=== PATIENT | male | born 1935 | race Two or more races ===

== ENCOUNTER 2021-05-27 11:19 | Inpatient (IN) | payer OTHER ==
[~2021-05-27] VITALS: Ht 162.6 cm; Wt 67.0 kg
[2021-05-27] MEDS ORDERED: SODIUM CHLORIDE 0.9% 500 ML IV ONE (11:30)
[2021-05-27 12:10] LABS: Hematocrit 18.3 % (41.0-53.0); Mean Corpuscular Hemoglobin 40.1 pg (28.0-32.0); Mean Corpuscular Hgb Conc. 33.5 g/dL (32.0-36.0); Red Blood Cells 1.52 10^6/uL (4.5-5.90); White Blood Cell 8.9 10^3/uL (4.4-10.8)
[2021-05-27 12:17] LABS: Red Cell Distribution Width 21.7 % (11.8-14.3)
[2021-05-27 12:18] LABS: Hemoglobin 6.1 g/dL (13.5-17.5)
[2021-05-27 12:20] LABS: Band Neutrophils % (manual) 0; Basophils % (manual) 0 (0.0-2.0); Blast Cells 0; Metamyelocytes % 0; Myelocytes % 0; Promyelocytes % 0; Reactive Lymphocytes 0
[2021-05-27 12:23] LABS: Albumin 2.5 g/dL (3.4-5.0); Calcium 7.8 mg/dL (8.5-10.1); Potassium 3.7 mmol/L (3.5-5.1)
[2021-05-27 12:27] LABS: Total Protein 5.3 g/dL (6.4-8.2)
[2021-05-27 12:41] LABS: Eosinophils % (manual) 1 (0-7); Lymphocytes % (manual) 76 (10.0-50.0); Monocytes % (manual) 1 (0-12)
[2021-05-27] MEDS ORDERED: diphenhdrAMINE HCL 50 MG/1 ML VL IV PRN (15:00)
[2021-05-27] MEDS ORDERED: ACETAMINOPHEN 325 MG TAB PO PRN (15:00)
[2021-05-27] MEDS ORDERED: MORPHINE SULFATE INJECTION 2 MG/2 ML SYRG IV PRN ×2 (15:00)
[2021-05-27] MEDS ORDERED: NITROGLYCERIN 0.4 MG SL TAB SL PRN (15:00)
[2021-05-27] MEDS ORDERED: hydrALAZINE HCL 20 MG/ML VL IV PRN (15:00)
[2021-05-27] MEDS ORDERED: ONDANSETRON HCL 4 MG/2 ML VIAL IV PRN (15:00)
[2021-05-27] MEDS: SODIUM CHLORIDE 0.9% 1,000 ML IV SCH (15:07)
[2021-05-27 15:30] VITALS: BP 97/42
[2021-05-27 15:45] VITALS: BP 107/52
[2021-05-27 17:50] VITALS: BP 97/43
[2021-05-27 18:05] LABS: Urine Bacteria NONE SEEN /hpf (None Seen); Urine Blood 1+ /uL (Negative); Urine Budding Yeast MODERATE /hpf (None Seen); Urine Mucus FEW (None Seen); Urine Specific Gravity 1.022 (1.001-1.035); Urine WBC 22 /hpf (0 - 3)
[2021-05-27] MEDS: cefTRIAXone 1GM/50ML D5W 50 ML IV SCH (22:23)
[2021-05-27] MEDS: PANTOPRAZOLE 40 MG/10 ML VIAL INJ IV SCH (22:23)
[2021-05-27 22:42] LABS: Hematocrit 22.4 % (41.0-53.0); Hemoglobin 7.5 g/dL (13.5-17.5)
[2021-05-28] VITALS (8 sets, daily range): BP systolic 98–126; BP diastolic 51–78
[2021-05-28 02:47] LABS: Hemoglobin 7.6 g/dL (13.5-17.5)
[2021-05-28 02:49] LABS: Hematocrit 21.7 % (41.0-53.0)
[2021-05-28] MEDS: SODIUM CHLORIDE 0.9% 1,000 ML IV SCH (06:45)
[2021-05-28 07:43] LABS: INR 1.22 (0.9-1.15)
[2021-05-28 07:47] LABS: Alanine Aminotransferase 25 U/L (16-61); Albumin 2.1 g/dL (3.4-5.0); Anion Gap 5 (5-15); Aspartate Aminotransferase 22 U/L (15-37); BUN/Creatinine Ratio 26.9; Blood Urea Nitrogen 21 mg/dL (7-18); Calcium 7.3 mg/dL (8.5-10.1); Carbon Dioxide 22 mmol/L (21-32); Chloride 114 mmol/L (98-107); GFR African American 122 mL/min; GFR Non-African American 101 mL/min; Glucose 92 mg/dL (74-106); Magnesium 2.4 mg/dL (1.6-2.6); Potassium 3.8 mmol/L (3.5-5.1); Sodium 141 mmol/L (136-145)
[2021-05-28 08:15] LABS: Alkaline Phosphatase 95 U/L (45-117); Bilirubin, Total 0.8 mg/dL (0.2-1.0); Total Protein 4.9 g/dL (6.4-8.2)
[2021-05-28 08:41] LABS: Hematocrit 22.5 % (41.0-53.0); Hemoglobin 7.6 g/dL (13.5-17.5); Mean Corpuscular Hemoglobin 37.9 pg (28.0-32.0); Mean Corpuscular Hgb Conc. 33.9 g/dL (32.0-36.0); Mean Corpuscular Volume 111.8 fL (80.0-100.0); Red Blood Cells 2.01 10^6/uL (4.5-5.90); White Blood Cell 8.9 10^3/uL (4.4-10.8)
[2021-05-28 08:46] LABS: Red Cell Distribution Width 28.3 % (11.8-14.3)
[2021-05-28 08:48] LABS: Basophils % (manual) 0 (0.0-2.0); Blast Cells 0; Metamyelocytes % 0; Myelocytes % 0; Promyelocytes % 0; Reactive Lymphocytes 0
[2021-05-28] MEDS: cefTRIAXone 1GM/50ML D5W 50 ML IV SCH (09:15)
[2021-05-28] MEDS: PANTOPRAZOLE 40 MG/10 ML VIAL INJ IV SCH ×2 (09:50→21:21)
[2021-05-28] MEDS ORDERED: LACTULOSE 20Gm/30ML SOLN PO SCH (10:00)
[2021-05-28 11:10] LABS: Band Neutrophils % (manual) 3; Eosinophils % (manual) 2 (0-7); Lymphocytes % (manual) 49 (10.0-50.0); Monocytes % (manual) 6 (0-12)
[2021-05-28 14:14] LABS: Hematocrit 23.5 % (41.0-53.0); Hemoglobin 7.9 g/dL (13.5-17.5)
[2021-05-28] MEDS ORDERED: BISACODYL 10 MG RECT SUPP PR ONE (17:15)
[2021-05-28] MEDS ORDERED: LACTULOSE 20Gm/30ML SOLN PO PRN (17:15)
[2021-05-28] MEDS: DOCUSATE SOD 100 MG CAP PO SCH (21:21)
[2021-05-28] MEDS: MUPIROCIN 2% OINT 15gm or 22gm EACHNOSTRI SCH (21:21)
[2021-05-29] MEDS: SODIUM CHLORIDE 0.9% 1,000 ML IV SCH ×2 (02:49→18:00)
[2021-05-29 05:00] VITALS: BP 95/45
[2021-05-29 06:17] LABS: Hematocrit 23.1 % (41.0-53.0); Hemoglobin 7.9 g/dL (13.5-17.5); Mean Corpuscular Hgb Conc. 34.3 g/dL (32.0-36.0); Mean Corpuscular Volume 110.8 fL (80.0-100.0); Red Blood Cells 2.08 10^6/uL (4.5-5.90); White Blood Cell 8.3 10^3/uL (4.4-10.8)
[2021-05-29 06:20] LABS: % Iron Saturation 50.2 % (20-55)
[2021-05-29 06:22] LABS: Calcium 7.6 mg/dL (8.5-10.1); Magnesium 2.6 mg/dL (1.6-2.6); Potassium 3.7 mmol/L (3.5-5.1)
[2021-05-29 06:26] LABS: BUN/Creatinine Ratio 24.1; Ferritin 155.2 ng/mL (10-322); INR 1.24 (0.9-1.15)
[2021-05-29 06:27] LABS: Cholesterol 76 mg/dL (< 200); HDL Cholesterol 21 mg/dL (40-59); LDL Cholesterol 46 mg/dL (< 100); Triglycerides 85 mg/dL (< 150)
[2021-05-29 06:28] LABS: Red Cell Distribution Width 26.9 % (11.8-14.3)
[2021-05-29 06:30] LABS: Basophils % (manual) 0 (0.0-2.0); Blast Cells 0; Myelocytes % 0; Promyelocytes % 0; Reactive Lymphocytes 0
[2021-05-29 07:29] LABS: Band Neutrophils % (manual) 2; Eosinophils % (manual) 4 (0-7); Lymphocytes % (manual) 57 (10.0-50.0); Metamyelocytes % 1; Monocytes % (manual) 5 (0-12)
[2021-05-29 09:00] VITALS: BP 101/60
[2021-05-29] MEDS: MUPIROCIN 2% OINT 15gm or 22gm EACHNOSTRI SCH ×2 (10:09→21:33)
[2021-05-29] MEDS: cefTRIAXone 1GM/50ML D5W 50 ML IV SCH (10:09)
[2021-05-29] MEDS: DOCUSATE SOD 100 MG CAP PO SCH ×3 (10:10→22:00)
[2021-05-29] MEDS: PANTOPRAZOLE 40 MG/10 ML VIAL INJ IV SCH ×2 (10:10→21:34)
[2021-05-29] MEDS ORDERED: FLEET ENEMA(ADULT) 135 ML PR ONE (12:15)
[2021-05-29 13:13] VITALS: BP 105/52
[2021-05-29 17:06] VITALS: BP 97/46
[2021-05-29] MEDS: TAMSULOSIN HYDROCHLORIDE 0.4 MG CAP PO SCH (18:00)
[2021-05-29] MEDS: Ensure HIGH Protein Chocolate 8oz Bottle PO SCH (18:00)
[2021-05-29 22:10] VITALS: BP 98/52
[2021-05-29] MEDS: LORazepam 0.5 MG TAB PO PRN (22:35)
[2021-05-30 05:00] VITALS: BP 112/68
[2021-05-30 06:34] LABS: Hemoglobin 7.7 g/dL (13.5-17.5); Mean Corpuscular Hgb Conc. 34.4 g/dL (32.0-36.0); White Blood Cell 8.7 10^3/uL (4.4-10.8)
[2021-05-30 06:37] LABS: Hematocrit 22.4 % (41.0-53.0); Mean Corpuscular Hemoglobin 38.2 pg (28.0-32.0); Mean Corpuscular Volume 111.2 fL (80.0-100.0); Red Blood Cells 2.01 10^6/uL (4.5-5.90)
[2021-05-30 06:55] LABS: BUN/Creatinine Ratio 19.7; Calcium 8.4 mg/dL (8.5-10.1)
[2021-05-30 06:59] LABS: Red Cell Distribution Width 27.3 % (11.8-14.3)
[2021-05-30 07:00] LABS: Basophils % (manual) 0 (0.0-2.0); Blast Cells 0; Myelocytes % 0; Reactive Lymphocytes 0
[2021-05-30 07:22] LABS: Band Neutrophils % (manual) 2; Eosinophils % (manual) 2 (0-7); Lymphocytes % (manual) 48 (10.0-50.0); Metamyelocytes % 1; Monocytes % (manual) 12 (0-12); Promyelocytes % 1
[2021-05-30] MEDS: Ensure HIGH Protein Chocolate 8oz Bottle PO SCH ×3 (08:00→18:00)
[2021-05-30] MEDS: cefTRIAXone 1GM/50ML D5W 50 ML IV SCH (08:47)
[2021-05-30] MEDS: SODIUM CHLORIDE 0.9% 1,000 ML IV SCH (08:48)
[2021-05-30 09:00] VITALS: BP 102/45
[2021-05-30] MEDS: DOCUSATE SOD 100 MG CAP PO SCH ×2 (09:12→21:14)
[2021-05-30] MEDS: MUPIROCIN 2% OINT 15gm or 22gm EACHNOSTRI SCH ×2 (09:12→21:12)
[2021-05-30] MEDS: PANTOPRAZOLE 40 MG/10 ML VIAL INJ IV SCH ×2 (09:12→21:14)
[2021-05-30 13:00] VITALS: BP 92/54
[2021-05-30] MEDS ORDERED: SODIUM CHLORIDE 0.9% 500 ML IV ONE (13:45)
[2021-05-30 16:15] VITALS: BP 100/48
[2021-05-30] MEDS: TAMSULOSIN HYDROCHLORIDE 0.4 MG CAP PO SCH (17:58)
[2021-05-30 22:08] VITALS: BP 94/50
[2021-05-30 22:33] VITALS: BP 94/50
[2021-05-31] MEDS ORDERED: IPRATROPIUM BROM 0.5 MG/2.5ML INH SOL NEB ONE (00:15)
[2021-05-31 05:41] VITALS: BP 102/56
[2021-05-31 06:30] LABS: Hematocrit 20.4 % (41.0-53.0); Hemoglobin 7.2 g/dL (13.5-17.5); Mean Corpuscular Hemoglobin 39.1 pg (28.0-32.0); Mean Corpuscular Hgb Conc. 35.4 g/dL (32.0-36.0); Mean Corpuscular Volume 110.5 fL (80.0-100.0); Red Blood Cells 1.85 10^6/uL (4.5-5.90)
[2021-05-31 06:47] LABS: Basophils % (manual) 0 (0.0-2.0); Blast Cells 0; Promyelocytes % 0; Reactive Lymphocytes 0; Red Cell Distribution Width 26.5 % (11.8-14.3)
[2021-05-31 06:59] LABS: Potassium 3.7 mmol/L (3.5-5.1)
[2021-05-31 07:07] LABS: Albumin 2.1 g/dL (3.4-5.0); BUN/Creatinine Ratio 16.7; Bilirubin, Total 0.9 mg/dL (0.2-1.0); Calcium 7.5 mg/dL (8.5-10.1); Total Protein 4.9 g/dL (6.4-8.2)
[2021-05-31] MEDS: Ensure HIGH Protein Chocolate 8oz Bottle PO SCH ×3 (08:00→18:00)
[2021-05-31 08:08] LABS: Band Neutrophils % (manual) 1; Eosinophils % (manual) 9 (0-7); Lymphocytes % (manual) 50 (10.0-50.0); Metamyelocytes % 1; Monocytes % (manual) 11 (0-12); Myelocytes % 1
[2021-05-31 09:00] VITALS: BP 95/54
[2021-05-31] MEDS: cefTRIAXone 1GM/50ML D5W 50 ML IV SCH (09:00)
[2021-05-31] MEDS: MUPIROCIN 2% OINT 15gm or 22gm EACHNOSTRI SCH ×2 (09:31→20:41)
[2021-05-31] MEDS: PANTOPRAZOLE 40 MG/10 ML VIAL INJ IV SCH ×2 (09:31→20:41)
[2021-05-31] MEDS: DOCUSATE SOD 100 MG CAP PO SCH ×2 (09:31→20:41)
[2021-05-31] MEDS ORDERED: IPRATROPIUM BROM 0.5 MG/2.5ML INH SOL NEB PRN (11:30)
[2021-05-31] MEDS ORDERED: AZITHROMYCIN 500MG/ 250ML 250 ML IV ONE (11:30)
[2021-05-31] MEDS ORDERED: FLUCONAZOLE 200MG/100ML 100 ML IV ONE (11:30)
[2021-05-31] MEDS ORDERED: ALBUTEROL SULF 2.5 MG/0.5ML(0.5%) NEB SOLN NEB PRN (11:30)
[2021-05-31 12:00] VITALS: BP 107/63
[2021-05-31] MEDS: IPRATROPIUM BROM 0.5 MG/2.5ML INH SOL NEB SCH ×3 (14:10→22:15)
[2021-05-31] MEDS: ALBUTEROL SULF 2.5 MG/0.5ML(0.5%) NEB SOLN NEB SCH ×3 (14:10→22:15)
[2021-05-31 15:52] LABS: Hemoglobin 8.1 g/dL (13.5-17.5)
[2021-05-31 15:55] LABS: Hematocrit 23.3 % (41.0-53.0); Mean Corpuscular Hemoglobin 38.4 pg (28.0-32.0); Mean Corpuscular Hgb Conc. 34.6 g/dL (32.0-36.0); Mean Corpuscular Volume 110.8 fL (80.0-100.0); Red Cell Distribution Width 26.7 % (11.8-14.3); White Blood Cell 8.4 10^3/uL (4.4-10.8)
[2021-05-31 15:56] LABS: Band Neutrophils % (manual) 0; Basophils % (manual) 0 (0.0-2.0); Blast Cells 0; Myelocytes % 0; Promyelocytes % 0
[2021-05-31 17:00] VITALS: BP 102/63
[2021-05-31] MEDS: TAMSULOSIN HYDROCHLORIDE 0.4 MG CAP PO SCH (17:22)
[2021-05-31 17:44] LABS: Eosinophils % (manual) 6 (0-7); Lymphocytes % (manual) 45 (10.0-50.0); Metamyelocytes % 2; Monocytes % (manual) 10 (0-12); Reactive Lymphocytes 3
[2021-05-31] MEDS: LORazepam 0.5 MG TAB PO PRN (20:41)
[2021-05-31 20:45] VITALS: BP 90/46
[2021-06-01] VITALS (8 sets, daily range): BP systolic 90–130; BP diastolic 46–87
[2021-06-01] MEDS: ALBUTEROL SULF 2.5 MG/0.5ML(0.5%) NEB SOLN NEB SCH ×6 (02:00→23:12)
[2021-06-01] MEDS: IPRATROPIUM BROM 0.5 MG/2.5ML INH SOL NEB SCH ×6 (02:00→23:12)
[2021-06-01 06:55] LABS: Mean Corpuscular Volume 109.5 fL (80.0-100.0); White Blood Cell 6.6 10^3/uL (4.4-10.8)
[2021-06-01 06:57] LABS: Hematocrit 19.5 % (41.0-53.0); Mean Corpuscular Hemoglobin 38.4 pg (28.0-32.0); Mean Corpuscular Hgb Conc. 35.1 g/dL (32.0-36.0); Red Blood Cells 1.78 10^6/uL (4.5-5.90)
[2021-06-01 07:12] LABS: Anion Gap 3 (5-15); BUN/Creatinine Ratio 15.4; Blood Urea Nitrogen 12 mg/dL (7-18); Calcium 7.5 mg/dL (8.5-10.1); Carbon Dioxide 27 mmol/L (21-32); Chloride 113 mmol/L (98-107); GFR African American 122 mL/min; GFR Non-African American 101 mL/min; Glucose 117 mg/dL (74-106); Magnesium 2.2 mg/dL (1.6-2.6); Potassium 3.7 mmol/L (3.5-5.1); Sodium 143 mmol/L (136-145)
[2021-06-01 07:34] LABS: Red Cell Distribution Width 25.9 % (11.8-14.3)
[2021-06-01 07:35] LABS: Hemoglobin 6.8 g/dL (13.5-17.5)
[2021-06-01 07:36] LABS: Band Neutrophils % (manual) 0; Blast Cells 0; Promyelocytes % 0; Reactive Lymphocytes 0
[2021-06-01] MEDS: Ensure HIGH Protein Chocolate 8oz Bottle PO SCH ×3 (08:00→17:53)
[2021-06-01 08:09] LABS: Basophils % (manual) 2 (0.0-2.0); Eosinophils % (manual) 4 (0-7); Lymphocytes % (manual) 67 (10.0-50.0); Metamyelocytes % 1; Monocytes % (manual) 5 (0-12); Myelocytes % 1
[2021-06-01] MEDS: cefTRIAXone 1GM/50ML D5W 50 ML IV SCH (09:25)
[2021-06-01] MEDS ORDERED: DICL1GEL50 TOP (09:35)
[2021-06-01] MEDS ORDERED: TRAZ-181 PO (09:35)
[2021-06-01] MEDS ORDERED: ALBU108A5 PO (09:35)
[2021-06-01] MEDS ORDERED: CEPH500C PO (09:35)
[2021-06-01] MEDS ORDERED: MET500T PO (09:35)
[2021-06-01] MEDS ORDERED: MEGE20TA4 PO (09:35)
[2021-06-01] MEDS: MUPIROCIN 2% OINT 15gm or 22gm EACHNOSTRI SCH ×2 (10:00→21:25)
[2021-06-01] MEDS: FLUCONAZOLE 200MG/100ML 100 ML IV SCH (10:00)
[2021-06-01] MEDS: DOCUSATE SOD 100 MG CAP PO SCH ×2 (10:00→21:26)
[2021-06-01] MEDS ORDERED: FUROSEMIDE 20 MG/2 ML VIAL IV ONE (10:30)
[2021-06-01] MEDS: AZITHROMYCIN 500MG/ 250ML 250 ML IV SCH (12:28)
[2021-06-01] MEDS: TAMSULOSIN HYDROCHLORIDE 0.4 MG CAP PO SCH (17:53)
[2021-06-01] MEDS: LORazepam 0.5 MG TAB PO PRN (21:26)
[2021-06-01] MEDS: predniSONE 20 MG TAB PO SCH (21:26)
[2021-06-02] MEDS: IPRATROPIUM BROM 0.5 MG/2.5ML INH SOL NEB SCH ×4 (02:24→14:08)
[2021-06-02] MEDS: ALBUTEROL SULF 2.5 MG/0.5ML(0.5%) NEB SOLN NEB SCH ×4 (02:24→14:08)
[2021-06-02 05:00] VITALS: BP 96/55
[2021-06-02 06:38] LABS: Hemoglobin 8.3 g/dL (13.5-17.5); Red Blood Cells 2.25 10^6/uL (4.5-5.90)
[2021-06-02 06:45] LABS: Mean Corpuscular Hemoglobin 36.8 pg (28.0-32.0); Mean Corpuscular Hgb Conc. 34.4 g/dL (32.0-36.0)
[2021-06-02 06:58] LABS: Magnesium 2.3 mg/dL (1.6-2.6)
[2021-06-02 07:09] LABS: Red Cell Distribution Width 25.7 % (11.8-14.3)
[2021-06-02 07:10] LABS: Basophils % (manual) 0 (0.0-2.0); Blast Cells 0; Promyelocytes % 0
[2021-06-02 09:00] VITALS: BP 100/57
[2021-06-02] MEDS: MUPIROCIN 2% OINT 15gm or 22gm EACHNOSTRI SCH (09:51)
[2021-06-02] MEDS: predniSONE 20 MG TAB PO SCH (09:51)
[2021-06-02] MEDS: DOCUSATE SOD 100 MG CAP PO SCH (09:51)
[2021-06-02] MEDS: cefTRIAXone 1GM/50ML D5W 50 ML IV SCH (09:51)
[2021-06-02] MEDS: Ensure HIGH Protein Chocolate 8oz Bottle PO SCH ×2 (09:55→14:29)
[2021-06-02] MEDS ORDERED: FUROSEMIDE 20 MG/2 ML VIAL IV SCH (10:00)
[2021-06-02] MEDS: AZITHROMYCIN 500MG/ 250ML 250 ML IV SCH (10:58)
[2021-06-02] MEDS ORDERED: ALBUAER3 IN (11:09)
[2021-06-02] MEDS ORDERED: FLUC200T35 PO (11:09)
[2021-06-02] MEDS ORDERED: TAM04C PO (11:09)
[2021-06-02] MEDS ORDERED: PANT40TA2 PO (11:09)
[2021-06-02] MEDS ORDERED: DOCU-94 PO (11:09)
[2021-06-02] MEDS ORDERED: PRED10TA PO (11:14)
[2021-06-02] MEDS: FLUCONAZOLE 200MG/100ML 100 ML IV SCH (11:35)
[2021-06-02 12:19] LABS: Band Neutrophils % (manual) 3; Eosinophils % (manual) 1 (0-7); Lymphocytes % (manual) 28 (10.0-50.0); Metamyelocytes % 1; Monocytes % (manual) 3 (0-12); Myelocytes % 2; Reactive Lymphocytes 1
[2021-06-02 13:00] VITALS: BP 125/70
[2021-06-02 13:23] VITALS: BP 101/64
[2021-06-02 17:00] VITALS: BP 109/51
== END 2021-06-02 15:20 | disposition hospice, home (50) | DRG 811 ==
LOC: EDBD 11:19 → ER 11:19 → EDSEX 11:19 → TELE 14:49 → TELE-CENTR 05-28 01:30 → CENTRAL 05-28 16:57 → TELE-CENTR 05-28 17:16
PROVIDERS: ADMIT Family Medicine; ATTEND Internal Medicine
PROC: 30230N1 Transfusion of Nonautologous Red Blood Cells into Peripheral Vein, Open Approach (ICD-10-PCS; principal; 2021-05-27)
DX: D64.9 Anemia, unspecified (principal); N17.0 Acute kidney failure with tubular necrosis; J96.01 Acute respiratory failure with hypoxia; C91.10 Chronic lymphocytic leukemia of B-cell type not having achieved remission; E44.0 Moderate protein-calorie malnutrition; J44.1 Chronic obstructive pulmonary disease with (acute) exacerbation; B37.49 Other urogenital candidiasis; I13.0 Hypertensive heart and chronic kidney disease with heart failure and stage 1 through stage 4 chronic kidney disease, or unspecified chronic kidney disease; I50.32 Chronic diastolic (congestive) heart failure; J98.11 Atelectasis; K76.6 Portal hypertension; Z66 Do not resuscitate; Z20.822 Contact with and (suspected) exposure to COVID-19; E11.65 Type 2 diabetes mellitus with hyperglycemia; E86.0 Dehydration; K59.00 Constipation, unspecified; B95.62 Methicillin resistant Staphylococcus aureus infection as the cause of diseases classified elsewhere; D69.59 Other secondary thrombocytopenia; K74.60 Unspecified cirrhosis of liver; D75.89 Other specified diseases of blood and blood-forming organs; E11.22 Type 2 diabetes mellitus with diabetic chronic kidney disease; R16.1 Splenomegaly, not elsewhere classified; G83.24 Monoplegia of upper limb affecting left nondominant side; N18.9 Chronic kidney disease, unspecified; N40.1 Benign prostatic hyperplasia with lower urinary tract symptoms; R33.8 Other retention of urine; Z86.73 Personal history of transient ischemic attack (TIA), and cerebral infarction without residual deficits; Z87.891 Personal history of nicotine dependence; Z79.899 Other long term (current) drug therapy; Z68.25 Body mass index [BMI] 25.0-25.9, adult
CPT/HCPCS: 36415; 71045; 71250; 80048; 80053; 80061; 81001; 82607; 82728; 83010; 83036; 83540; 83550; 83605; 83615; 83735; 83880; 84132; 84154; 84443; 84484; 85007; 85014; 85018; 85027; 85045; 85610; 86850; 86880; 86900; 86901; 86920; 87040; 87081; 87086; 87088; 87426; 93005; 93306; 94640; 96361; 96365; 96375; C9113; G0378; J0696; J1450; J2405